=== PATIENT | male | born 1950 | race American Indian/Alaskan Native ===

== ENCOUNTER 2021-07-21 14:03 | Emergency (ER) | payer MEDICARE ==
--- NOTE | 2021-07-21 20:17 | XRay Report ---
CHEST 1 VIEW 07/21/2021 8:01 PM INDICATION / CLINICAL INFORMATION: Weakness. COMPARISON: None available. FINDINGS: SUPPORT DEVICES: None. HEART / MEDIASTINUM: The heart size and pulmonary vasculature are normal. There are atherosclerotic c alcifications involving aorta without aneurysm. LUNGS / PLEURA: There is a calcified granuloma overlying the right lateral lung base/liver. A tiny ca lcified granuloma overlies the right lung apex. No acute pulmonary or pleural abnormality. No pneumot horax. ADDITIONAL FINDINGS: There is old healed fracture deformity of the proximal right humerus. IMPRESSION: No acute findings. Signer Name: Soren Gallardo MD Signed: 07/21/2021 8:13 PM Workstation Name: [id number]
--- NOTE | 2021-07-21 20:28 | Emergency Department Report ---
HPI - General Chief Complaint: Weakness Time Seen by Provider: 07/21/21 19:41 - HPI HPI: MSE 7 The patient is a 70-year-old male present with a chief complaint of homelessness. The patient states he was diagnosed with COVID-19 recently and was placed in quarantine at the [facility]. The patient states he was discharged from there today and EMS dropped him off here in the emergency department. Patient denies having any complaints and states he feels okay. Patient states he no longer feels sick but he is homeless ED Past Medical Hx - Past Medical History Previous Medical History?: No - Surgical History Past Surgical History?: No - Family History Family history: no significant - Social History Smoking Status: Unknown if ever smoked Substance Use Type: None - Medications Home Medications: Home Medications Medication Instructions Recorded Confirmed Last Taken Type Levothyroxine [Synthroid] 50 mcg PO QAM #60 tablet 07/22/21 Unknown Rx ED Review of Systems ROS: Stated complaint: WEAKNESS Other details as noted in HPI Constitutional: no symptoms reported Eyes: denies: eye pain ENT: denies: throat pain Respiratory: no symptoms reported Cardiovascular: denies: chest pain Endocrine: no symptoms reported Gastrointestinal: denies: abdominal pain Genitourinary: denies: dysuria Musculoskeletal: denies: back pain Neurological: denies: headache Physical Exam - Physical Exam Vital Signs: Vital Signs 07/21/21 14:03 Temperature 98.9 F Pulse Rate 68 Respiratory 14 Rate Blood Pressure 188/108 [Right] O2 Sat by Pulse 97 Oximetry Physical Exam: GENERAL: The patient is well-developed well-nourished male sitting in chair not appearing to be in acute distress. [] HEENT: Normocephalic. Atraumatic. Extraocular motions are intact. Patient has moist mucous membranes. NECK: Supple. Trachea midline CHEST/LUNGS: Clear to auscultation. There is no respiratory distress noted. HEART/CARDIOVASCULAR: Regular. There is no tachycardia. There is no gallop rub or murmur. ABDOMEN: Abdomen is soft, nontender. Patient has normal bowel sounds. There is no abdominal distention. SKIN: There is no rash. There is no edema. There is no diaphoresis. NEURO: The patient is awake, alert, and oriented. The patient is cooperative. The patient has no focal neurologic deficits. The patient has normal speech. GCS 15 MUSCULOSKELETAL: There is no evidence of acute injury. ED Course Vital Signs 07/21/21 14:03 Temperature 98.9 F Pulse Rate 68 Respiratory 14 Rate Blood Pressure 188/108 [Right] O2 Sat by Pulse 97 Oximetry ED Medical Decision Making - Lab Data Result diagrams: 07/21/21 20:07 07/21/21 20:07 Laboratory Tests 07/21/21 07/21/21 07/21/21 20:07 20:07 20:07 WBC 3.7 L RBC 5.60 H Hgb 15.9 H Hct 49.8 H MCV 89 MCH 28 MCHC 32 RDW 13.9 Plt Count 284 Lymph % (Auto) 45.9 H Kaufman % (Auto) 11.1 H Eos % (Auto) 1.1 Baso % (Auto) 1.2 Lymph # (Auto) 1.7 Kaufman # (Auto) 0.4 Eos # (Auto) 0.0 Baso # (Auto) 0.0 Seg Neutrophils % 40.7 Seg Neutrophils # 1.5 L Sodium 140 Potassium 3.4 L Chloride 97.3 L Carbon Dioxide 26 Anion Gap 20 BUN 12 Creatinine 0.9 Estimated GFR > 60 BUN/Creatinine Ratio 13 Glucose 108 H Lactic Acid 3.20 H* Calcium 9.4 Magnesium 1.50 L Total Bilirubin 0.70 AST 27 ALT 17 Alkaline Phosphatase 89 Total Creatine Kinase 87 CK-MB (CK-2) 2.8 CK-MB (CK-2) Rel Index 3.2 Troponin T < 0.010 Total Protein 9.3 H Albumin 4.5 Albumin/Globulin Ratio 0.9 TSH Free T4 07/21/21 07/22/21 20:07 01:19 WBC RBC Hgb Hct MCV MCH MCHC RDW Plt Count Lymph % (Auto) Kaufman % (Auto) Eos % (Auto) Baso % (Auto) Lymph # (Auto) Kaufman # (Auto) Eos # (Auto) Baso # (Auto) Seg Neutrophils % Seg Neutrophils # Sodium Potassium Chloride Carbon Dioxide Anion Gap BUN Creatinine Estimated GFR BUN/Creatinine Ratio Glucose Lactic Acid 1.40 Calcium Magnesium Total Bilirubin AST ALT Alkaline Phosphatase Total Creatine Kinase CK-MB (CK-2) CK-MB (CK-2) Rel Index Troponin T Total Protein Albumin Albumin/Globulin Ratio TSH 4.390 H Free T4 1.48 H - Radiology Data Radiology results: report reviewed (Chest x-ray), image reviewed (Chest x-ray) interpreted by me: Chest x-ray-no definite focal infiltrates, no pneumothorax [facility] [address] [place] [address] XRay Report Signed Patient: JEREMÍAS THOMAS MR#: [id number] : 1950 Acct:[id number] Age/Sex: 70 / M ADM Date: 07/21/21 Loc: ED Attending Dr: Ordering Physician: RICHARD RINALDI MD Date of Service: 07/21/21 Proc edure(s): XR chest 1V ap Accession Number(s): [id number] cc: RICHARD RINALDI MD Fluoro Time In Minutes: CHEST 1 VIEW 07/21/2021 8:01 PM INDICATION / CLINICAL INFORMATION: Weakness. COMPARISON: None available. FINDINGS: SUPPORT DEVICES: None. HEART / MEDIASTINUM: The heart size and pulmonary vasculature are normal. There are atherosclerotic calcifications involving aorta without aneurysm. LUNGS / PLEURA: There is a calcified granuloma overlying the right lateral lung base/liver. A tiny calcified granuloma overlies the right lung apex. No acute pulmonary or pleural abnormality. No pneumothorax. ADDITIONAL FINDINGS: There is old healed fracture deformity of the proximal right humerus. IMPRESSION: No ac victor manuel findings. Signer Name: Soren Gallardo MD Signed: 07/21/2021 8:13 PM Workstation Name: [id number] Transcribed By: RT Dictated By: Soren Gallardo MD Electronically Authenticated By: Soren Gallardo MD Signed Date/Time: 07/21/212012 DD/ 10 TD/TT: Print Cancel - Differential Diagnosis Homelessness Critical care attestation.: If time is entered above; I have spent that time in minutes in the direct care of this critically ill patient, excluding procedure time. ED Disposition Clinical Impression: Homelessness, Hypothyroidism Disposition: HOME / SELF CARE / HOMELESS Is pt being admited?: No Does the pt Need Aspirin: No Condition: Stable Instructions: Hypothyroidism Additional Instructions: Return to the emergency department should you develop worsening symptoms, inability to tolerate food or liquids, high fever or any other concerns Prescriptions: Levothyroxine [Synthroid] 50 mcg PO QAM #60 tablet Referrals: PRIMARY CAREMD [Primary Care Provider] - 3-5 Days [facility] [Provider Group] - 3-5 Days
[2021-07-21 20:31] LABS: Basophils % (Auto) 1.2 % (0.0-1.8); Eosinophils % (Auto) 1.1 % (0.0-4.3); Hematocrit 49.8 % (35.5-45.6); Hemoglobin 15.9 gm/dl (11.8-15.2); Lymphocytes # (Auto) 1.7 K/mm3 (1.2-5.4); Lymphocytes % (Auto) 45.9 % (13.4-35.0); Mean Corpuscular HGB Conc 32 % (32-34); Mean Corpuscular Volume 89 fl (84-94); Monocytes # (Auto) 0.4 K/mm3 (0.0-0.8); Monocytes % (Auto) 11.1 % (0.0-7.3); Platelet Count 284 K/mm3 (140-440); Red Cell Distribution Width 13.9 % (13.2-15.2)
[2021-07-21 20:51] LABS: Alanine Aminotransferase 17 units/L (7-56); Albumin 4.5 g/dL (3.9-5); BUN/Creatinine Ratio 13; Blood Urea Nitrogen 12 mg/dL (9-20); Calcium 9.4 mg/dL (8.4-10.2); Creatine Kinase MB 2.8 ng/mL (0.0-4.0); Hemolysis Index 3
[2021-07-21 20:57] LABS: Free T4 (Free Thyroxine) 1.48 ng/dL (0.76-1.46)
[2021-07-21] MEDS ORDERED: MAGNESIUM SULFATE 2 GM/50 ML BAG IV ONE (21:14)
[2021-07-21] MEDS ORDERED: SODIUM CHLORIDE 0.9% 1000 ML 1,000 ML IV ONE ×2 (21:14)
[2021-07-22] MEDS ORDERED: MAGNESIUM SULFATE 2 GM/50 ML BAG IV ONE (00:48)
[2021-07-22] MEDS ORDERED: cloNIDine 0.2 MG TAB PO ONE (14:22)
[2021-07-26 05:42] VITALS: BP 145/96
== END 2021-07-26 11:24 | disposition home or self-care (01) ==
LOC: ED 14:03
DX: E03.9 Hypothyroidism, unspecified (principal); Z59.00 Homelessness unspecified
CPT/HCPCS: 36415; 71045; 80053; 82140; 82550; 82553; 83735; 84439; 84443; 84484; 85025; 87040; 96365; 99283; J3475; J7030; Q0162